=== PATIENT | female | born 1965 | race Caucasian/White ===

== ENCOUNTER → 2017-01-18 | Outpatient (CLI) | payer OTHER | LOC: EXRD 11:31 | DX: M54.9 Dorsalgia, unspecified (principal) | CPT/HCPCS: 72070 ==

== ENCOUNTER → 2017-01-23 | Outpatient (CLI) | payer OTHER | LOC: KOH-I 12-25 13:30 | DX: N18.9 Chronic kidney disease, unspecified (principal) | CPT/HCPCS: 93975 ==